=== PATIENT | female | born 2000 | race Two or more races ===

== ENCOUNTER 2022-02-22 00:48 | Inpatient (IN) | payer OTHER ==
[~2022-02-22] VITALS: Ht 162.6 cm; Wt 73.9 kg
[2022-02-22] MEDS ORDERED: PRENATAL TABLE1 EAC1 PO (01:22)
== END 2022-02-24 18:18 | disposition home or self-care (01) | DRG 807 ==
LOC: LDR 00:48 → OB/GYN 00:48
PROVIDERS: ADMIT Obstetrics & Gynecology; ATTEND Obstetrics & Gynecology
PROC: 10E0XZZ Delivery of Products of Conception, External Approach (ICD-10-PCS; principal; 2022-02-22)
PROC: 4A1HXCZ Monitoring of Products of Conception, Cardiac Rate, External Approach (ICD-10-PCS; 2022-02-22)
DX: O80 Encounter for full-term uncomplicated delivery (principal); Z37.0 Single live birth; Z3A.37 37 weeks gestation of pregnancy; Z20.822 Contact with and (suspected) exposure to COVID-19